=== PATIENT | male | born 1990 | race Caucasian/White ===

== ENCOUNTER → 2017-02-17 | Outpatient (CLI) | payer BC ==
--- NOTE | 2017-02-17 14:20 | DIAGNOSTIC IMAGING REPORT ---
ORBIT RADIOGRAPHS 3 VIEWS HISTORY: Pre-MRI pre-MRI screening. COMPARISON: None. FINDINGS: There are no radiopaque foreign bodies identified within the orbits. IMPRESSION: No radiopaque foreign bodies identified within the orbits. Opacified right maxillary sinus Electronically signed by: Caleb Rouse M.D. 02/17/2017 2:19 PM Dictated Date/Time: 02/17/2017 2:18 PM
--- NOTE | 2017-02-17 14:57 | DIAGNOSTIC IMAGING REPORT ---
MRI OF THE THORACIC SPINE WITHOUT CONTRAST CLINICAL HISTORY: Back pain. COMPARISON: Thoracic spine radiograph September 05, 2014. TECHNIQUE: Utilizing a 1.5 Sneha magnet and dedicated coil, multiplanar, multiecho imaging of the thoracic spine was performed without IV contrast. FINDINGS: Alignment of the thoracic spine is anatomic. Vertebral body heights are maintained. A 1.4 cm T1 and T2 hyperintense lesion within the left aspect of the T11 vertebral body reflects a hemangioma. There is no suspicious marrow replacement. There is no intracanalicular mass or fluid collection. Thoracic cord signal and caliber are normal. Paravertebral soft tissues are unremarkable. Disc spaces are preserved. Central canal and neural foramen are patent. IMPRESSION: Unremarkable MRI of the thoracic spine. Electronically signed by: Marco Antonio Guerrero M.D. 02/17/2017 2:56 PM Dictated Date/Time: 02/17/2017 2:50 PM
== END | disposition home or self-care (01) ==
LOC: C.MRI 13:37
PROVIDERS: ATTEND Internal Medicine
DX: M54.9 Dorsalgia, unspecified (principal)

== ENCOUNTER → 2017-03-21 | Outpatient (CLI) | payer BC ==
[~2017-03-21] MED LIST: PRLSR20 PO
--- NOTE | 2017-03-21 14:27 | DIAGNOSTIC IMAGING REPORT ---
L-SPINE MIN 4 VIEWS ROUTINE HISTORY: Pain LUMBAGO COMPARISON: None. FINDINGS: There is no fracture. No subluxation. Disc spaces are preserved. IMPRESSION: No fracture or subluxation within the lumbar spine. The above report was generated using voice recognition software. It may contain grammatical, syntax or spelling errors. Electronically signed by: Caleb Rouse M.D. 03/21/2017 2:26 PM Dictated Date/Time: 03/21/2017 2:25 PM
== END | disposition home or self-care (01) ==
LOC: C.RADBC 14:08
PROVIDERS: ATTEND Physician Assistant
DX: M54.5 Low back pain (principal)